=== PATIENT | male | born 1970 | race Caucasian/White ===

== ENCOUNTER 2023-06-29 07:35 | Day surgery (SDC) | payer OTHER ==
[~2023-06-29] VITALS: Ht 188 cm; Wt 92.6 kg
[~2023-06-29 07:35] MED LIST: NS 1,000 ML IV ONE
[2023-06-29 09:09] VITALS: TEMP 97.1
[2023-06-29 09:35] VITALS: BP 113/75; O2SAT 96
== END 2023-06-29 09:46 | disposition home or self-care (01) ==
LOC: M OPP 07:35
PROVIDERS: ATTEND Internal Medicine Gastroenterology
DX: Z12.11 Encounter for screening for malignant neoplasm of colon (principal); D12.6 Benign neoplasm of colon, unspecified; D64.0 Hereditary sideroblastic anemia

== ENCOUNTER → 2023-12-01 | Outpatient (CLI) | payer OTHER | LOC: M WUC 09:06 | PROVIDERS: ATTEND Physician Assistant | DX: S20.213A Contusion of bilateral front wall of thorax, initial encounter (principal); W00.0XXA Fall on same level due to ice and snow, initial encounter; Y92.009 Unspecified place in unspecified non-institutional (private) residence as the place of occurrence of the external cause ==